=== PATIENT | female | born 1995 | race Caucasian/White ===

== ENCOUNTER 2020-04-28 09:55 | Emergency (ER) | payer MEDICAID ==
[~2020-04-28] VITALS: Ht 154.9 cm; Wt 65.9 kg
[~2020-04-28 09:55] MED LIST: SERT-153 PO
--- NOTE | 2020-04-28 10:07 | NUR ---
STATES SHE IS HAVING SEIZURES, BUT CAN TALK BECAUSE SHE NEEDS TO TELL US WHAT IS GOING ON. STATES SHE WAS AT [employer] [facility] TODAY WITH HER MOM AND FELT LIKE THE SEIZURES "WERE COMING". C/O FEELING WEAK, DIZZY, CLAMMY, CRYING.
[2020-04-28 10:42] LABS: BASOPHILS # (AUTO) 0.1 X10'3 (0-0.2); BASOPHILS % (AUTO) 0.6 % (0-1); EOSINOPHILS # (AUTO) 0.4 X10'3 (0-0.9); HEMATOCRIT 38.9 % (35.0-45.0); HEMOGLOBIN 13.1 g/dl (12.0-16.0); LYMPHOCYTES # (AUTO) 2.6 X10'3 (1.1-4.8); LYMPHOCYTES % (AUTO) 22.3 % (21-51); MEAN CORPUSCULAR HEMOGLOBIN 31.7 PG (27.0-31.0); MEAN CORPUSCULAR HGB CONC 33.6 g/dL (33.0-36.5); MEAN CORPUSCULAR VOLUME 94.4 FL (78-98); MEAN PLATELET VOLUME 8.5 FL (7.4-10.4); MONOCYTES # (AUTO) 1.1 X10'3 (0-0.9); MONOCYTES % (AUTO) 9.1 % (2-12); NEUTROPHILS # (AUTO) 7.7 X10'3 (1.8-7.7); PLATELET COUNT 257 X10'3 (140-440); RED BLOOD COUNT 4.11 X10'6 (4.20-5.60); RED CELL DISTRIBUTION WIDTH 12.6 % (11.5-14.5); WHITE BLOOD COUNT 11.8 X10'3 (4.5-11.0)
[2020-04-28 10:55] LABS: ALANINE AMINOTRANSFERASE 18 U/L (12-78); ALBUMIN 2.3 G/DL (3.4-5.0); ALBUMIN/GLOBULIN RATIO 0.6 (1.1-1.5); ALKALINE PHOSPHATASE 128 IU/L (46-116); ANION GAP 9 (8-16); ASPARTATE AMINO TRANSFERASE 18 U/L (10-37); BILIRUBIN,TOTAL 0.2 MG/DL (0.1-1.0); BLOOD UREA NITROGEN 2 MG/DL (7-18); BUN/CREATININE RATIO 3.1 (6.6-38.0); CALCIUM 8.3 MG/DL (8.5-10.1); CHLORIDE 106 MMOL/L (99-107); CREATININE 0.64 MG/DL (0.40-0.90); GLUCOSE 97 MG/DL (70-104); POTASSIUM 3.7 MMOL/L (3.5-5.1); SODIUM 137 MMOL/L (135-145); TOTAL CARBON DIOXIDE 21.8 MMOL/L (24-32); TOTAL PROTEIN 6.2 G/DL (6.4-8.2); eGFR > 90 ML/MIN
[2020-04-28 10:55] LABS: CLARITY,URINE SLIGHTLY CLOUDY (Clear); COLOR,URINE STRAW (Yellow); GLUCOSE, URINE NEGATIVE (Neg); KETONES,URINE NEGATIVE (Neg); LEUKOCYTE ESTERASE ,URINE LARGE (Neg); NITRITES, URINE NEGATIVE (Neg); OCCULT BLOOD,URINE NEGATIVE (Neg); PH,URINE 6.5 (4.8-8.0); PROTEIN,URINE NEGATIVE (Neg); UA COLLECTION TYPE VOIDED
[2020-04-28 10:58] LABS: URINE AMPHETAMINE SCREEN NEGATIVE (Neg); URINE BARBITUATE SCREEN NEGATIVE (Neg); URINE BENZODIAZEPINES SCREEN NEGATIVE (Neg); URINE CANNABINOID SCREEN NEGATIVE (Neg); URINE COCAINE SCREEN NEGATIVE (Neg); URINE METHADONE SCREEN NEGATIVE (Neg); URINE OPIATE SCREEN NEGATIVE (Neg); URINE PHENCYCLIDINE SCREEN NEGATIVE (Neg)
[2020-04-28 11:00] VITALS: BP 102/70
[2020-04-28 11:02] LABS: SQUAMOUS EPITHELIAL CELL,UR MANY /LPF (FEW)
[2020-04-28 11:04] LABS: MUCUS STRANDS FEW /LPF (Neg)
[2020-04-28 11:06] LABS: RBC,URINE 0-2 /HPF (0-2); WBC,URINE 30-50 /HPF (0-4)
[2020-04-28 11:07] LABS: BACTERIA,URINE 1+ /HPF (Neg)
[2020-04-28] MEDS ORDERED: cephalexin 250mg capsule PO ONE (11:20)
--- NOTE | 2020-04-28 12:35 | NUR ---
REPORT CALLED TO [facility], NURSE SANTANA. PATIENT HAS DEPARTED PER JA[facility] IN STABLE CONDITION.
== END 2020-04-28 14:57 | disposition short-term general hospital (02) ==
LOC: ER 09:55
DX: O26.893 Other specified pregnancy related conditions, third trimester (principal); F41.9 Anxiety disorder, unspecified; N39.0 Urinary tract infection, site not specified; R10.30 Lower abdominal pain, unspecified; R20.0 Anesthesia of skin; Z79.899 Other long term (current) drug therapy
CPT/HCPCS: 36415; 80053; 80305; 81001; 85025; 99283; 99285

== ENCOUNTER 2023-07-20 15:32 | Emergency (ER) | payer MEDICAID ==
[~2023-07-20] VITALS: Ht 154.9 cm; Wt 60.9 kg
[~2023-07-20 15:32] MED LIST changes: +IBUP-1984 PO; +LIDO700A47 TD
[2023-07-20 15:50] VITALS: TEMP 96.9
--- NOTE | 2023-07-20 16:22 | NUR ---
PT REPORTS TO THE ER WITH " PAIN IN VAGINAL AREA, PT REPORTS BURNING CONSTANTLY."
[2023-07-20 16:25] LABS: URINE HCG NEGATIVE (NEG)
--- NOTE | 2023-07-20 16:32 | NUR ---
PT EXRESSES CONCERN FOR . PT AIRWAY PATENT, BREATHING IS UNLABORED AND EVEN.
--- NOTE | 2023-07-20 17:16 | NUR ---
pt assessment reviewed by RN
[2023-07-20 17:27] LABS: BILIRUBIN,URINE NEGATIVE (Neg); CLARITY,URINE CLOUDY (Clear); COLOR,URINE YELLOW (Yellow); GLUCOSE, URINE 100 mg/dl (Neg); KETONES,URINE TRACE mg/dl (Neg); LEUKOCYTE ESTERASE ,URINE SMALL (Neg); OCCULT BLOOD,URINE LARGE (Neg); PROTEIN,URINE >=300 mg/dl (Neg)
[2023-07-20 17:44] LABS: NITRITES, URINE NEGATIVE (Neg); UA COLLECTION TYPE CLN CATCH MIDSTREAM
[2023-07-20 17:46] LABS: SQUAMOUS EPITHELIAL CELL,UR MODERATE /LPF (FEW)
[2023-07-20 17:47] LABS: BACTERIA,URINE FEW /HPF (Neg); RBC,URINE TNTC /HPF (0-2); WBC,URINE 50-100 /HPF (0-4)
[2023-07-20 17:48] LABS: TRANSITIONAL EPI CELLS,URINE FEW /HPF
--- NOTE | 2023-07-20 17:59 | NUR ---
RATING OFFICER ASSESSMENT REVIEWED BY FELIPE RN AND APPROVED
[2023-07-20] MEDS ORDERED: NITR100C6 PO (18:08)
[2023-07-20 18:53] VITALS: BP 110/72; PULSE 71; RESP 17; O2SAT 98
== END 2023-07-20 18:54 | disposition home or self-care (01) ==
LOC: ER 15:33
DX: N30.01 Acute cystitis with hematuria (principal); F31.9 Bipolar disorder, unspecified; Z79.899 Other long term (current) drug therapy
CPT/HCPCS: 81001; 81025; 87088; 99283